=== PATIENT | male | born 1990 ===

== ENCOUNTER 2018-02-17 13:45 | Outpatient (CLI) | payer OTHER | END 2018-02-17 13:46 | disposition home or self-care (01) | LOC: BICRAD 13:45 | PROVIDERS: ATTEND Family Medicine | DX: M54.5 Low back pain (principal); M79.672 Pain in left foot; M21.42 Flat foot [pes planus] (acquired), left foot | CPT/HCPCS: 72100 ==

== ENCOUNTER → 2021-01-26 | Outpatient (CLI) | payer BC | LOC: SLEEPLAB 18:00 | PROVIDERS: ATTEND Family Medicine | DX: G47.33 Obstructive sleep apnea (adult) (pediatric) (principal); R53.83 Other fatigue; R09.89 Other specified symptoms and signs involving the circulatory and respiratory systems; G31.84 Mild cognitive impairment of uncertain or unknown etiology; R06.83 Snoring; F41.9 Anxiety disorder, unspecified; F32.9 Major depressive disorder, single episode, unspecified; G47.00 Insomnia, unspecified; F90.9 Attention-deficit hyperactivity disorder, unspecified type; R35.1 Nocturia; E66.9 Obesity, unspecified; Z68.34 Body mass index [BMI] 34.0-34.9, adult | CPT/HCPCS: 95806 ==

== ENCOUNTER 2021-10-09 08:53 | Outpatient (CLI) | payer BC | END 2021-10-09 08:54 | disposition home or self-care (01) | LOC: DTY/OP 08:53 | PROVIDERS: ATTEND Family Medicine | DX: E55.9 Vitamin D deficiency, unspecified (principal); R74.01 Elevation of levels of liver transaminase levels | CPT/HCPCS: 97802 ==